=== PATIENT | male | born 1965 | race Two or more races ===

== ENCOUNTER 2020-10-25 06:30 | Emergency (ER) | payer SELFPAY ==
[~2020-10-25] VITALS: Ht 165.1 cm; Wt 123.0 kg
[2020-10-25 06:36] VITALS: BP 125/78
== END 2020-10-25 08:52 | disposition left against medical advice (07) ==
LOC: ER 06:30
DX: Z53.21 Procedure and treatment not carried out due to patient leaving prior to being seen by health care provider (principal)